=== PATIENT | female | born 1950 | race American Indian/Alaskan Native ===

== ENCOUNTER 2019-11-13 01:18 | Observation (INO) | payer MEDICARE ==
--- NOTE | 2019-11-13 01:42 | Emergency Department Report ---
ED General Adult HPI - General Chief complaint: Chest Pain Stated complaint: CHEST PAIN Time Seen by Provider: 11/13/19 01:37 Source: patient Mode of arrival: Ambulatory Limitations: No Limitations - History of Present Illness Initial comments: 69-year-old female with a history of diabetes and hypertension presents with complaint of chest pain. Patient states that she has had chest pain for the past 2 days which is been intermittent. Patient describes that the chest pain has radiated up to her neck region. Patient states that her last stress test was February 2019 and was normal. Patient saw her primary care doctor for the chest pain and was given a muscle relaxant. Patient states the pain has continued to be intermittent in presentation and that she presented here to the ER. Patient denies any nausea or vomiting. Patient denies any diaphoresis. Patient denies any recent long trips. - Related Data Home Medications Medication Instructions Recorded Confirmed Last Taken Alogliptin Remy/Pioglitazone 1 each PO DAILY 07/12/15 07/12/15 Unknown [Oseni 25-30 mg Tablet] Gabapentin [Neurontin] 300 mg PO BID 07/12/15 11/13/19 Unknown carvediloL [Coreg] 12.5 mg PO BID 07/12/15 11/13/19 Unknown lisinopriL [Zestril TAB] 20 mg PO QDAY 07/12/15 11/13/19 Unknown metFORMIN [Glucophage] 500 mg PO BID 07/12/15 07/12/15 Unknown Aspirin 81 mg PO DAILY 11/13/19 11/13/19 Unknown Glimepiride [Amaryl] 4 mg PO DAILY 11/13/19 11/13/19 Unknown HumaLOG Mix 75-25 Kwikpen 10 units SUB-Q ACHS 11/13/19 11/13/19 Unknown Simvastatin 20 mg PO DAILY 11/13/19 11/13/19 Unknown Previous Rx's Medication Instructions Recorded Last Taken Type Insulin Detemir (Nf) [Levemir 25 unit SQ QHS #1 package 07/12/15 Unknown Rx Flextouch (Nf)] Allergies Allergy/AdvReac Type Severity Reaction Status Date / Time sulfamethoxazole AdvReac Unknown Verified 07/12/15 01:11 [From ] trimethoprim [From ] AdvReac Unknown Verified 07/12/15 01:11 ED Review of Systems ROS: Stated complaint: CHEST PAIN Other details as noted in HPI Constitutional: denies: chills, fever Eyes: denies: eye pain, eye discharge, vision change ENT: denies: ear pain, throat pain Respiratory: denies: cough, shortness of breath, wheezing Cardiovascular: chest pain. denies: palpitations Endocrine: no symptoms reported Gastrointestinal: denies: abdominal pain, nausea, diarrhea Genitourinary: denies: urgency, dysuria, discharge Musculoskeletal: denies: back pain, joint swelling, arthralgia Skin: denies: rash, lesions Neurological: denies: headache, weakness, paresthesias Psychiatric: denies: anxiety, depression Hematological/Lymphatic: denies: easy bleeding, easy bruising ED Past Medical Hx - Past Medical History Previous Medical History?: Yes Hx Hypertension: Yes Hx Diabetes: Yes - Surgical History Past Surgical History?: Yes Hx Cholecystectomy: Yes Additional Surgical History: tubal - Social History Smoking Status: Never Smoker Substance Use Type: None - Medications Home Medications: Home Medications Medication Instructions Recorded Confirmed Last Taken Type Alogliptin Remy/Pioglitazone 1 each PO DAILY 07/12/15 07/12/15 Unknown History [Oseni 25-30 mg Tablet] Gabapentin [Neurontin] 300 mg PO BID 07/12/15 11/13/19 Unknown History Insulin Detemir (Nf) [Levemir 25 unit SQ QHS #1 package 07/12/15 Unknown Rx Flextouch (Nf)] carvediloL [Coreg] 12.5 mg PO BID 07/12/15 11/13/19 Unknown History lisinopriL [Zestril TAB] 20 mg PO QDAY 07/12/15 11/13/19 Unknown History metFORMIN [Glucophage] 500 mg PO BID 07/12/15 07/12/15 Unknown History Aspirin 81 mg PO DAILY 11/13/19 11/13/19 Unknown History Glimepiride [Amaryl] 4 mg PO DAILY 11/13/19 11/13/19 Unknown History HumaLOG Mix 75-25 Kwikpen 10 units SUB-Q ACHS 11/13/19 11/13/19 Unknown History Simvastatin 20 mg PO DAILY 11/13/19 11/13/19 Unknown History ED Physical Exam - General Limitations: No Limitations General appearance: alert, other (Comfortable; awake) - Head Head exam: Present: atraumatic, normocephalic - Eye Eye exam: Present: normal appearance - ENT ENT exam: Present: mucous membranes moist - Neck Neck exam: Present: normal inspection - Respiratory Respiratory exam: Present: normal lung sounds bilaterally. Absent: respiratory distress - Cardiovascular Cardiovascular Exam: Present: regular rate, normal rhythm. Absent: systolic murmur, diastolic murmur, rubs, gallop - GI/Abdominal GI/Abdominal exam: Present: soft, normal bowel sounds - Extremities Exam Extremities exam: Present: normal inspection - Back Exam Back exam: Present: normal inspection - Neurological Exam Neurological exam: Present: alert, oriented X3 - Psychiatric Psychiatric exam: Present: normal affect, normal mood - Skin Skin exam: Present: warm, dry, intact, normal color. Absent: rash ED Course Vital Signs 11/13/19 11/13/19 11/13/19 01:25 01:27 02:35 Temperature 97.8 F Pulse Rate 73 74 66 Respiratory 18 18 Rate Blood Pressure 227/85 221/88 Blood Pressure [Right] O2 Sat by Pulse 95 94 Oximetry 11/13/19 11/13/19 11/13/19 02:40 02:45 03:47 Temperature Pulse Rate 67 64 65 Respiratory 16 16 Rate Blood Pressure Blood Pressure 183/69 [Right] O2 Sat by Pulse 98 98 98 Oximetry ED Medical Decision Making - Lab Data Result diagrams: 11/13/19 01:53 11/13/19 01:53 - EKG Data -: EKG Interpreted by Me EKG shows normal: sinus rhythm Rate: normal - EKG Data Interpretation: other (Prolonged QT; No evidence of STEMI) - Medical Decision Making Patient to be admitted to the hospitalist service for continued management and treatment. Patient received aspirin therapy while here in emergency department as well. - Differential Diagnosis STEMI; NSTEMI; Pneumonia; Pneumothorax; Dehydration Critical care attestation.: If time is entered above; I have spent that time in minutes in the direct care of this critically ill patient, excluding procedure time. ED Disposition Clinical Impression: Chest pain Disposition: 09 OP ADMIT IP TO THIS HOSP Is pt being admited?: Yes Does the pt Need Aspirin: No (Patient received Aspirin while in the ER) Condition: Stable Instructions: Chest Pain (ED) Time of Disposition: 05:09 Print Language: GERMAN
--- NOTE | 2019-11-13 01:55 | XRay Report ---
CHEST 1 VIEW INDICATION: Chest Pain. COMPARISON: None. FINDINGS: Support devices: None. Heart: Normal. Lungs/Pleura: There are mild diffuse interstitial opacities. No consolidation or effusion. No pneumot horax. IMPRESSION: 1. Age-indeterminate mild diffuse increased interstitial markings. No consolidation or pleural abnorm ality. Signer Name: Rich Monreal MD Signed: 11/13/2019 1:50 AM Workstation Name: [id number]
[2019-11-13] MEDS ORDERED: ACETAMINOPHEN 500 MG TAB PO ONE (02:11)
[2019-11-13] MEDS ORDERED: cloNIDine 0.2 MG TAB PO ONE (02:11)
[2019-11-13 02:17] LABS: Basophils # (Auto) 0.1 K/mm3 (0.0-0.1); Basophils % (Auto) 0.7 % (0.0-1.8); Eosinophils # (Auto) 0.3 K/mm3 (0.0-0.4); Eosinophils % (Auto) 2.8 % (0.0-4.3); Hematocrit 39.8 % (30.3-42.9); Hemoglobin 13.1 gm/dl (10.1-14.3); Lymphocytes # (Auto) 4.1 K/mm3 (1.2-5.4); Mean Corpuscular HGB Conc 33 % (30-34); Mean Corpuscular Volume 89 fl (79-97); Monocytes # (Auto) 0.8 K/mm3 (0.0-0.8); Monocytes % (Auto) 6.9 % (0.0-7.3); Platelet Count 267 K/mm3 (140-440); Red Blood Count 4.46 M/mm3 (3.65-5.03); Red Cell Distribution Width 13.7 % (13.2-15.2)
[2019-11-13 02:39] LABS: BUN/Creatinine Ratio 22; Blood Urea Nitrogen 11 mg/dL (7-17); Calcium 9.3 mg/dL (8.4-10.2); Hemolysis Index 6
[2019-11-13] MEDS ORDERED: ASPIRIN EC 325 MG TAB PO ONE (03:57)
--- NOTE | 2019-11-13 04:50 | Cat Scan Report ---
CTA CHEST WITH IV CONTRAST INDICATION: P.E. PROTOCOL!!! Pt complains of chest pains x 3 days.. TECHNIQUE: Axial CT images were obtained through the chest after injection of IV contrast. 3 plane MIP reconstru ctions were produced. All CT scans at this location are performed using CT dose reduction for ALARA b y means of automated exposure control. COMPARISON: None available. FINDINGS: Pulmonary Arteries: No pulmonary emboli. Thoracic Aorta: No acute abnormality. Heart: There is left-sided cardiomegaly. No pericardial effusion. Lungs: No acute air space or interstitial disease. There are mild atelectatic changes in the dependen t lung bases. Pleura: No pleural effusion. No pneumothorax. Lymph Nodes: No significant adenopathy. Additional Findings: There is diffuse enlargement of the left thyroid lobe which slightly displaces t he trachea toward the right. Upper Abdomen: No acute findings. Skeletal Structures: No significant osseous abnormality. IMPRESSION: 1. No CT evidence for pulmonary embolism. 2. No acute findings. 3. Left-sided cardiomegaly. 4. Goiter. Signer Name: Rich Monreal MD Signed: 11/13/2019 4:45 AM Workstation Name: [id number]
[2019-11-13] MEDS ORDERED: oxyCODONE /ACETAMINOPHEN 5-325MG TAB PO PRN (05:34)
[2019-11-13] MEDS ORDERED: ONDANSETRON 4 MG/2 ML INJ IV PRN (05:34)
[2019-11-13] MEDS ORDERED: ACETAMINOPHEN 325 MG TAB PO PRN (05:34)
--- NOTE | 2019-11-13 05:42 | History and Physical Report ---
History of Present Illness History of present illness: 69-year-old woman with a history of hypertension, diabetes comes emergency room with complaints of chest pain that started 2 days ago. Pain is in the epigastric area which he describes as sharp, intermittent lasting for hours, intensity 5-10, radiating to the neck, cannot identify exacerbating or relieving factors. Denies nausea vomiting, shortness of breath, diaphoresis, admits to palpitation. States she is compliant with her antihypertensive, blood pressure upon arrival was 227/85, responded to antihypertensive. Complain of a headache. Last stress test was 2 years ago. Patient will be admitted for evaluation of chest pain Review Of Systems: Constitutional: no weight loss, fever, chills Ears, eyes, nose, mouth and throat: no nasal congestion, no nasal discharge, no sinus pressure, blurry vision, diplopia Neck: No neck pain or rigidity. Cardiovascular: + palpitations, chest pain Respiratory: No shortness of breath, cough Gastrointestinal: No hematochezia, abdominal pain Genitourinary : no dysuria, frequency Musculoskeletal: no muscle ache , joint pain Integumentary: no rash, no pruritis Neurological: no parathesias, focal weakness Endocrine: no cold or heat intolerance, no polyuria or polydipsia Hematologic/Lymphatic: no easy bruising, no easy bleeding, no gland swelling Allergic/Immunologic: no urticaria, no angioedema. PAST MEDICAL HISTORY: Hypertension, diabetes PAST SURGICAL HISTORY: Cholecystectomy, tubal ligation SOCIAL HISTORY: Denies alcohol, tobacco, drugs FAMILY HISTORY: Hypertension Medications and Allergies Allergies Allergy/AdvReac Type Severity Reaction Status Date / Time sulfamethoxazole AdvReac Unknown Verified 07/12/15 01:11 [From ] trimethoprim [From ] AdvReac Unknown Verified 07/12/15 01:11 Home Medications Medication Instructions Recorded Confirmed Last Taken Type Alogliptin Remy/Pioglitazone 1 each PO DAILY 07/12/15 07/12/15 Unknown History [Oseni 25-30 mg Tablet] Gabapentin [Neurontin] 300 mg PO BID 07/12/15 11/13/19 Unknown History Insulin Detemir (Nf) [Levemir 25 unit SQ QHS #1 package 07/12/15 Unknown Rx Flextouch (Nf)] carvediloL [Coreg] 12.5 mg PO BID 07/12/15 11/13/19 Unknown History lisinopriL [Zestril TAB] 20 mg PO QDAY 07/12/15 11/13/19 Unknown History metFORMIN [Glucophage] 500 mg PO BID 07/12/15 07/12/15 Unknown History Aspirin 81 mg PO DAILY 11/13/19 11/13/19 Unknown History Glimepiride [Amaryl] 4 mg PO DAILY 11/13/19 11/13/19 Unknown History HumaLOG Mix 75-25 Kwikpen 10 units SUB-Q ACHS 11/13/19 11/13/19 Unknown History Simvastatin 20 mg PO DAILY 11/13/19 11/13/19 Unknown History Active Meds: Active Medications Acetaminophen (Tylenol) 650 mg PO Q4H PRN PRN Reason: Pain MILD(1-3)/Fever >100.5/MAIN Enoxaparin Sodium (Enoxaparin) 30 mg SUB-Q QDAY DEBBIE Ondansetron HCl (Zofran) 4 mg IV Q8H PRN PRN Reason: Nausea And Vomiting Oxycodone/Acetaminophen (Percocet 5/325) 1 tab PO Q6H PRN PRN Reason: Pain, Moderate (4-6) Sodium Chloride (Sodium Chloride Flush Syringe 10 Ml) 10 ml IV BID DEBBIE Sodium Chloride (Sodium Chloride Flush Syringe 10 Ml) 10 ml IV PRN PRN PRN Reason: LINE FLUSH Exam - Physical Exam Narrative exam: Gen. appearance: Patient lying in bed, no apparent distress HEENT: Normocephalic, atraumatic, pupils equally round and reactive to light, extraocular movement intact, and no sclericterus,. No JVD or thyromegaly or nodule,neck supple, no carotid bruit ,mucous membranes moist, no exudate or erythema Heart: S1, S2, regular rate and rhythm Lungs: Clear bilaterally, breathing comfortable Abdomen: Positive bowel sounds, nontender, nondistended, no organomegaly Extremity: no edema, cyanosis, clubbing Skin: No rash, nodules, warm, dry Neuro: speech is fluent, cranial nerves II to XII intact, motor and sensory intact - Constitutional Vitals: Temp Pulse Resp BP Pulse Ox 97.8 F 65 16 183/69 98 11/13/19 01:27 11/13/19 03:47 11/13/19 03:47 11/13/19 03:47 11/13/19 03:47 Results - Labs CBC & Chem 7: 11/13/19 01:53 11/13/19 01:53 Labs: Abnormal lab results 11/13/19 11/13/19 Range/Units 01:53 01:53 WBC 11.5 H (4.5-11.0) K/mm3 Lymph % (Auto) 36.0 H (13.4-35.0) % Creatinine 0.5 L (0.7-1.2) mg/dL Glucose 282 H (65-100) mg/dL - Imaging and Cardiology EKG: image reviewed Chest x-ray: report reviewed CT scan - chest: report reviewed Assessment and Plan Assessment Chest pain secondary to hypertensive urgency Check cardiac enzymes, obtain stress test Start antihypertensives, add IV hydralazine as needed Percocet for pain Headache Obtain CT head Diabetes Check fingersticks initiate insulin sliding scale DVT prophylaxis
[2019-11-13] MEDS ORDERED: DEXTROSE 50% IN WATER (25GM) 50 ML SYRINGE IV PRN (05:43)
[2019-11-13] MEDS: INSULIN LISPRO 100 UNIT/ML SUB-Q SCH ×2 (05:52→13:13)
--- NOTE | 2019-11-13 07:46 | Cat Scan Report ---
CT head without contrast HISTORY: Headache. Headache for the past 2 days, patient had IV contrast 3 hours ago TECHNIQUE: Axial imaging performed from the skull apex through the skull base without the use of con trast. All CT scans at this location are performed using CT dose reduction for ALARA by means of aut omated exposure control. COMPARISON: None FINDINGS: Parenchyma: No acute intracranial hemorrhage or parenchymal abnormality. Ventricles: There is mild diffuse brain atrophy with commensurate ventricular enlargement which is l ikely age appropriate. Soft tissues: Soft tissues including the orbits appear normal. Bones: No acute osseous abnormality. Sinuses: Sinuses and mastoid air cells are clear. IMPRESSION: No acute abnormality. Signer Name: Wellington Olmstead MD Signed: 11/13/2019 7:41 AM Workstation Name: [id number]
[2019-11-13] MEDS ORDERED: ENOXAPARIN 40 MG/0.4 ML INJ SUB-Q SCH (10:00)
--- NOTE | 2019-11-13 11:00 | Discharge Summary ---
Providers - Providers Date of Admission: 11/13/19 05:32 Date of discharge: 11/13/19 Attending physician: JON DUENAS Primary care physician: ANNABELLE ELLISON MD Hospitalization Condition: Stable Hospital course: Discharge diagnosis: /Chest pain secondary to hypertensive urgency negative cardiac enzymes, recommended outpt stress test /hypertensive urgency, BP improved on discharge /Headache, due to elevated BP Obtain CT head - negative for acute findings /Diabetes type2 uncontrolled Check fingersticks, initiated insulin sliding scale /Goitre, need outpt thyroid US Disposition: DC- TO HOME OR SELFCARE Time spent for discharge: 34 minutes Core Measure Documentation - Palliative Care Palliative Care/ Comfort Measures: Not Applicable - Core Measures Any of the following diagnoses?: none Exam - Constitutional Vitals: Temp Pulse Resp BP Pulse Ox 97.8 F 60 18 131/54 99 11/13/19 07:53 11/13/19 07:53 11/13/19 07:53 11/13/19 07:53 11/13/19 07:53 Plan Activity: advance as tolerated Weight Bearing Status: Non-Weight Bearing Diet: diabetic Additional Instructions: Thyroid US and stress test as outpt Plan of Treatment: follow up with DR.. Toby Hoang Tel#[phone] ([facility];[id number] [place] [id number] Follow up with: PRIMARY MD TERRA [Primary Care Provider] - 3-5 Days
[2019-11-13 13:09] VITALS: BP 160/62
== END 2019-11-13 16:22 | disposition home or self-care (01) ==
LOC: SUATTDRO 01:18 → ED 01:18 → 4A 05:32
PROVIDERS: ADMIT Internal Medicine; ATTEND Internal Medicine
DX: I16.0 Hypertensive urgency (principal); R07.89 Other chest pain; E04.9 Nontoxic goiter, unspecified; R51 Headache; I10 Essential (primary) hypertension; E11.9 Type 2 diabetes mellitus without complications; Z90.49 Acquired absence of other specified parts of digestive tract; Z98.51 Tubal ligation status; Z79.4 Long term (current) use of insulin; Z79.82 Long term (current) use of aspirin
CPT/HCPCS: 36415; 70450; 71045; 71275; 80048; 82962; 84443; 84484; 85025; 93005; 93010; 93306; 96372; 96374; 99285; G0378; J1650; J2405; Q9967

== ENCOUNTER 2022-05-30 08:05 | Emergency (ER) | payer MEDICARE ==
[2022-05-30] MEDS ORDERED: BUTALB/ACETAMINOPHEN/CAFFEINE TAB PO ONE (11:22)
--- NOTE | 2022-05-30 12:40 | Cat Scan Report ---
CT HEAD WITHOUT CONTRAST INDICATION / CLINICAL INFORMATION: headache. TECHNIQUE: All CT scans at this location are performed using CT dose reduction for ALARA by means of automated e xposure control. COMPARISON: Head CT 11/13/2019 FINDINGS: HEMORRHAGE: No evidence of intracranial hemorrhage or extra-axial fluid collection. EXTRA-AXIAL SPACES: Cortical sulci and sylvian fissures are enlarged reflecting a degree of parenchym al volume loss which is within normal limits for the patient's age 72 years. Basilar cisterns have an unremarkable appearance. VENTRICULAR SYSTEM: The third and lateral ventricles are enlarged out of proportion to the cortical s ulci. This probably reflects the presence of central greater than cortical atrophy. CEREBRAL PARENCHYMA: Periventricular and deep white matter lucency is observed. This is probably seco ndary to microvascular ischemic change. There is no indication of recent infarction. No areas of ence phalomalacia are identified. MIDLINE SHIFT OR HERNIATION: There is no mass effect. CEREBELLUM / BRAINSTEM: Brainstem and cerebellum have an unremarkable appearance. MIDLINE STRUCTURES:No abnormalities of the pituitary gland or pineal region are observed INTRACRANIAL VESSELS: No significant abnormality identified on this noncontrast head CT examination. CRANIOCERVICAL JUNCTION:No abnormality ORBITS: Status post bilateral cataract surgery. No additional abnormality. SOFT TISSUES of HEAD: No significant abnormality. CALVARIUM: Evaluation of bone windows reveals no abnormalities. PARANASAL SINUSES / MASTOID AIR CELLS: Paranasal sinuses are free from inflammatory mucosal disease. Mastoid air cells are normally pneumatized. IMPRESSION: 1. involutional changes of central greater than cortical parenchymal volume loss and microvascular is chemia. 2. No acute intracranial abnormality. No significant interval change compared to head CT 11/13/2019. Signer Name: Johann Martin MD Signed: 05/30/2022 12:36 PM Workstation Name: [id number]
[2022-05-30] MEDS ORDERED: fentaNYL 100 MCG/2 ML INJ IM ONE (15:03)
--- NOTE | 2022-05-30 15:34 | Emergency Department Report ---
ED General Adult HPI - General Chief complaint: Headache Stated complaint: SEVERE MIGRAINE HEADACHE PUI?: No Time Seen by Provider: 05/30/22 15:03 Source: patient Mode of arrival: Ambulatory Limitations: No Limitations - History of Present Illness Initial comments: pt reports MAIN since 05/26/22, pt tried excedrin at home with no improvement nof ever no enck pain no neruological deficit -: Gradual, days(s) (3) Location: head Radiation: non-radiation Severity scale (0 -10): 10 Quality: aching Consistency: constant Improves with: none Worsens with: none Associated Symptoms: denies: denies other symptoms, confusion, chest pain, cough, headaches, loss of appetite - Related Data Home Medications Medication Instructions Recorded Confirmed Last Taken Alogliptin Remy/Pioglitazone 1 each PO DAILY 07/12/15 07/12/15 Unknown [Oseni 25-30 mg Tablet] Gabapentin 300 mg PO BID 07/12/15 11/13/19 Unknown carvediloL [Coreg] 12.5 mg PO BID 07/12/15 11/13/19 Unknown lisinopriL [Zestril TAB] 20 mg PO QDAY 07/12/15 11/13/19 Unknown metFORMIN [Glucophage] 500 mg PO BID 07/12/15 07/12/15 Unknown Aspirin 81 mg PO DAILY 11/13/19 11/13/19 Unknown Glimepiride [Amaryl] 4 mg PO DAILY 11/13/19 11/13/19 Unknown HumaLOG Mix 75-25 Kwikpen 10 units SUB-Q ACHS 11/13/19 11/13/19 Unknown Simvastatin 20 mg PO DAILY 11/13/19 11/13/19 Unknown Previous Rx's Medication Instructions Recorded Last Taken Type Insulin Detemir (Nf) [Levemir 25 unit SQ QHS #1 package 07/12/15 Unknown Rx Flextouch (Nf)] Acetaminophen/Codeine [Tylenol 1 tab PO Q6H PRN #10 tab 05/30/22 Unknown Rx /Codeine # 3 tab] Ketorolac [Toradol] 10 mg PO Q6H PRN #10 05/30/22 Unknown Rx Allergies Allergy/AdvReac Type Severity Reaction Status Date / Time sulfamethoxazole AdvReac Unknown Verified 05/30/22 08:26 [From ] trimethoprim [From ] AdvReac Unknown Verified 05/30/22 08:26 ED Review of Systems ROS: Stated complaint: SEVERE MIGRAINE HEADACHE Other details as noted in HPI Constitutional: denies: chills, fever Eyes: denies: eye pain, eye discharge, vision change ENT: denies: ear pain, throat pain Respiratory: denies: cough, shortness of breath, wheezing Cardiovascular: denies: chest pain, palpitations Endocrine: no symptoms reported Gastrointestinal: denies: abdominal pain, nausea, diarrhea Genitourinary: denies: urgency, dysuria, discharge Musculoskeletal: denies: back pain, joint swelling, arthralgia Skin: denies: rash, lesions Neurological: denies: headache, weakness, paresthesias Psychiatric: denies: anxiety, depression Hematological/Lymphatic: denies: easy bleeding, easy bruising ED Past Medical Hx - Past Medical History Previous Medical History?: Yes Hx Hypertension: Yes Hx CVA: No Hx Diabetes: Yes - Surgical History Past Surgical History?: Yes Hx Cholecystectomy: Yes Additional Surgical History: tubal - Social History Smoking Status: Never Smoker Substance Use Type: None - Medications Home Medications: Home Medications Medication Instructions Recorded Confirmed Last Taken Type Alogliptin Remy/Pioglitazone 1 each PO DAILY 07/12/15 07/12/15 Unknown History [Oseni 25-30 mg Tablet] Gabapentin 300 mg PO BID 07/12/15 11/13/19 Unknown History Insulin Detemir (Nf) [Levemir 25 unit SQ QHS #1 package 07/12/15 Unknown Rx Flextouch (Nf)] carvediloL [Coreg] 12.5 mg PO BID 07/12/15 11/13/19 Unknown History lisinopriL [Zestril TAB] 20 mg PO QDAY 07/12/15 11/13/19 Unknown History metFORMIN [Glucophage] 500 mg PO BID 07/12/15 07/12/15 Unknown History Aspirin 81 mg PO DAILY 11/13/19 11/13/19 Unknown History Glimepiride [Amaryl] 4 mg PO DAILY 11/13/19 11/13/19 Unknown History HumaLOG Mix 75-25 Kwikpen 10 units SUB-Q ACHS 11/13/19 11/13/19 Unknown History Simvastatin 20 mg PO DAILY 11/13/19 11/13/19 Unknown History Acetaminophen/Codeine [Tylenol 1 tab PO Q6H PRN #10 tab 05/30/22 Unknown Rx /Codeine # 3 tab] Ketorolac [Toradol] 10 mg PO Q6H PRN #10 05/30/22 Unknown Rx ED Physical Exam - General Limitations: No Limitations General appearance: alert, in no apparent distress - Head Head exam: Present: atraumatic, normocephalic - Eye Eye exam: Present: normal appearance - ENT ENT exam: Present: mucous membranes moist - Neck Neck exam: Present: normal inspection - Respiratory Respiratory exam: Present: normal lung sounds bilaterally. Absent: respiratory distress - Cardiovascular Cardiovascular Exam: Present: regular rate, normal rhythm. Absent: systolic murmur, diastolic murmur, rubs, gallop - GI/Abdominal GI/Abdominal exam: Present: soft, normal bowel sounds - Extremities Exam Extremities exam: Present: normal inspection - Back Exam Back exam: Present: normal inspection - Neurological Exam Neurological exam: Present: alert, oriented X3 - Psychiatric Psychiatric exam: Present: normal affect, normal mood - Skin Skin exam: Present: warm, dry, intact, normal color. Absent: rash ED Course Vital Signs 05/30/22 05/30/22 05/30/22 08:23 12:35 12:46 Temperature 97.9 F Pulse Rate 73 Respiratory 16 Rate Blood Pressure 173/72 139/71 O2 Sat by Pulse 89 96 97 Oximetry 05/30/22 05/30/22 05/30/22 12:55 13:00 13:16 Temperature 97.7 F Pulse Rate Respiratory 18 Rate Blood Pressure 139/71 174/80 O2 Sat by Pulse 98 99 97 Oximetry 05/30/22 05/30/22 05/30/22 13:30 13:46 14:00 Temperature Pulse Rate Respiratory Rate Blood Pressure 174/80 142/45 142/45 O2 Sat by Pulse 96 99 98 Oximetry 05/30/22 05/30/22 05/30/22 14:16 14:30 14:46 Temperature Pulse Rate Respiratory Rate Blood Pressure 163/82 163/82 164/85 O2 Sat by Pulse 96 99 95 Oximetry ED Medical Decision Making - Radiology Data Radiology results: report reviewed, image reviewed - Medical Decision Making CT head showed age re;lated chjanges vss no distress pain controlled , didn;t want blood work Critical care attestation.: If time is entered above; I have spent that time in minutes in the direct care of this critically ill patient, excluding procedure time. ED Disposition Clinical Impression: Headache Disposition: 01 HOME / SELF CARE / HOMELESS Is pt being admited?: No Does the pt Need Aspirin: No Condition: Stable Prescriptions: Ketorolac [Toradol] 10 mg PO Q6H PRN #10 PRN Reason: Pain Acetaminophen/Codeine [Tylenol /Codeine # 3 tab] 1 tab PO Q6H PRN #10 tab PRN Reason: Pain, Moderate (4-6) Referrals: PRIMARY CARE, [Primary Care Provider] - 3-5 Days
[2022-05-30 15:38] VITALS: BP 157/86
== END 2022-05-30 15:38 | disposition home or self-care (01) ==
LOC: ED 08:05
DX: R51.9 Headache, unspecified (principal); I10 Essential (primary) hypertension; Z90.49 Acquired absence of other specified parts of digestive tract; Z79.899 Other long term (current) drug therapy; Z88.2 Allergy status to sulfonamides; Z88.8 Allergy status to other drugs, medicaments and biological substances; Z79.4 Long term (current) use of insulin; Z98.51 Tubal ligation status
CPT/HCPCS: 70450; 96372; 99283; J3010